=== PATIENT | male | born 1990 | race Caucasian/White ===

== ENCOUNTER 2016-06-22 14:11 | Inpatient (IN) | payer SELFPAY ==
--- NOTE | ~2016-06-22 | PA ---
Unit #: [id number] #: [id number] Patient: DREW BRONSON [id number] [place] [address] [id number] MR#: [id number] NAME: DREW BRONSON ROOM: P206 Age: 25 Sex: M Admission Date: 06/22/2016 : 1990 Date of Assessment: 06/23/2016 Attending Physician: Kwaku Mcclain M.D. Admitting Physician: Kwaku Mcclain M.D. Primary Care Physician: Generic Doctor Not In System PSYCHIATRIC ASSESSMENT DATE OF SERVICE 06/23/2016. INFORMANTS The patient, reliable; OLOP, reliable. CHIEF COMPLAINT Opioid dependence. HISTORY OF PRESENT ILLNESS Hoang is a 25-year-old man with a history of opioid dependence, who presented to the hospital in an extremely intoxicated state. Evaluation had to be conducted via Tajik sign language interpreter in which the patient admitted to ongoing heroin use and requested admission for detox. He denied suicidal ideation, intent, or plan. He was admitted for opioid detox. PAST PSYCHIATRIC HISTORY One previous admission to this facility. He has no other psychiatric history. FAMILY PYSCHIATRIC HISTORY None. SOCIAL HISTORY Please see previous assessments. PAST MEDICAL HISTORY No chronic medical problems. MEDICATIONS None currently. ALLERGIES No known medication allergies. SUBSTANCE ABUSE HISTORY As noted, the patient has been using IV heroin to excess. MENTAL STATUS EXAMINATION The patient presented as a mildly disheveled man, who appeared his stated age. His speech was heavily accented Tajik with [id number] Malian language skills. Musculoskeletal examination was calm. His mood Unit #: [id number] #: [id number] Patient: DREW BRONSON was moderately depressed with a congruent affect. He was alert and fully oriented with no evidence of psychosis and no statements of suicidal ideation. Insight and judgment were fair to good. ASSETS AND LIABILITIES The patient is in general good health and has supportive family. Liabilities include problems with acculturation and ongoing drug use. ADMITTING DIAGNOSES AXIS I: Opiate dependence with withdrawal, uncomplicated, F11.23. AXIS II: No diagnosis. AXIS III: Opioid withdrawal. AXIS IV: AXIS V: PSYCHIATRIC PLAN The patient was admitted and placed on the opioid detox protocol. Physical examination will be ordered and reviewed. TREATMENT GOALS Establishment of sobriety, improvement in insight, and improvement in coping skills. DISCHARGE PLANNING [facility]. ESTIMATED LENGTH OF STAY 5 days. Dictated by... Kwaku Mcclain M.D. CLAIRE/shaan TD: 09/01/2016 16:20 JOB #: [id number] PSYCHIATRIC ASSESSMENT Page 1 of 1 X Kwaku Mcclain MD X PSYCHIATRIC ASSESSMENT
--- NOTE | ~2016-06-22 | HP ---
Unit #: [id number] #: [id number] Patient: TANO BRONSON [id number] [place] [address] [id number] MR#: [id number] NAME: TANO BRONSON ROOM: P206 Age: 25 Sex: M Admission Date: 06/22/2016 : 1990 Attending Physician: Kwaku Mcclain M.D. Admitting Physician: Kwaku Mcclain M.D. Primary Care Physician: Jassi Doctor Not In System HISTORY AND PHYSICAL HISTORY OF PRESENT ILLNESS Tano is a 25 year old admitted to [address] [place] [address] because of his continued drug use which includes IV heroin. PAST MEDICAL HISTORY Long history of illicit substance abuse to include IV heroin, amphetamines and marijuana. PAST SURGICAL HISTORY Nothing reported. ALLERGIES No known drug allergies. SOCIAL HISTORY He does not smoke. Drinks alcohol on occasion. Admits to a long history of illicit substance abuse to include IV drugs. FAMILY HISTORY Medically noncontributory. REVIEW OF SYSTEMS CONSTITUTIONAL: No fever or chills. HEENT: Denies any sore throat, ear pain or runny nose. CARDIOVASCULAR: Denies chest pain, irregular heart rhythm or palpitations. CHEST: Denies shortness of breath or cough. No hemoptysis. GASTROINTESTINAL: Denies nausea, vomiting, diarrhea or chronic constipation. ENDOCRINE: Denies history of increased thirst or urination. No recent significant weight loss or gain. GENITOURINARY: Denies dysuria, frequency, or hematuria. SKIN: Denies any rashes. HEMATOLOGIC: Denies history of increased bleeding or bruising. MUSCULOSKELETAL: Denies any hot, swollen joints. No generalized muscle pain. NEUROLOGIC: Denies problems with vision or speech. No frequent, severe headaches. No numbness, tingling or weakness in any extremities. Denies loss of bladder or bowel control. CURRENT MEDICATIONS Detox protocol. PHYSICAL EXAMINATION Unit #: [id number] #: [id number] Patient: TANO BRONSON GENERAL: Alert, well-nourished, in no apparent distress. VITAL SIGNS: Blood pressure 124/92, heart rate 80, respirations 16, temperature 98.6. WEIGHT: 150. HEIGHT: 5 feet 8 inches. SKIN: Warm and dry without rash or lesion. HEENT: Normocephalic. TMs not viewed. Oral and nasal passages clear. Conjunctivae clear. PERRLA. EOMs intact. NECK: Supple without lymphadenopathy or thyromegaly. HEART: Regular rate and rhythm without murmur. LUNGS: Clear. ABDOMEN: Soft, nontender. : Not done. EXTREMITIES: No evidence of cyanosis, clubbing or edema. Moves all without focal deficit. NEUROLOGICAL: Grossly within normal limits. Cranial Nerves: II: Visual dowling are intact. III, IV AND : Extraocular movements are intact. Pupils are equal, round and reactive to light. V: Facial sensation is grossly normal. VII: Facial movements and expression are normal. VIII: Auditory acuity grossly intact. IX, X: Uvula is midline. Phonation is normal. XI: Patient shrugs shoulders and turns head normally. XII: Tongue protrudes in the midline. Sensory and Motor Function: Sensory and motor sensation is grossly normal. Motor: moves all extremities well. Coordination: Gait is normal. Deep Tendon Reflexes: Intact. IMPRESSION Psychiatric admission. RECOMMENDATIONS PSYCHIATRIC: Per psychiatrist. MEDICAL: See no contraindications to participate in facility's activities. MEDICAL PROGNOSIS Good. MEDICAL CONDITION Stable. Dictated by... Zuleika Christian P.A.-C. for Jamie España/candido TD: 06/22/2016 19:34 JOB #: [id number] Unit #: [id number] #: [id number] Patient: TANO BRONSON HISTORY AND PHYSICAL Page 1 of 1 X Zuleika Christian HISTORY AND PHYSICAL
--- NOTE | ~2016-06-22 | DS ---
Unit #: [id number] #: [id number] Patient: DREW BRONSON [id number] [place] [address] [id number] MR#: [id number] NAME: DREW BRONSON ROOM: P206 Age: 25 Sex: M Admission Date: 06/22/2016 : 1990 Discharge Date: 06/25/2016 Attending Physician: Kwaku Mcclain M.D. Primary Care Physician: Generic Doctor Not In System DISCHARGE SUMMARY REASON FOR ADMISSION Roel is a 25-year-old Indonesian man, who presented for the third time to this facility with complaints of increasing heroin abuse in the IV state. He has also abused cannabis and amphetamines. He was admitted for detox. LABORATORY DATA Please see hospital chart. HOSPITAL COURSE The patient was admitted and placed on the opioid detox protocol. Ukrainian language translation was provided for group participation and he denied suicidal ideation, intent, or plan. He had no depression symptoms and no suicidal ideation, and was able to contract for safety once again on the date of discharge. DISCHARGE DIAGNOSES AXIS I: Opioid dependence with withdrawal, uncomplicated. AXIS II: No diagnosis. AXIS III: Opioid withdrawal syndrome. AXIS IV: AXIS V: DISCHARGE INSTRUCTIONS Follow up with chemical dependence programming in the community through the community mental health program. DISCHARGE MEDICATIONS None. CONDITION AT DISCHARGE Fair. PROGNOSIS Good. DIET Per primary care doctor. ACTIVITY Per primary care doctor. Unit #: [id number] #: [id number] Patient: DREW BRONSON Dictated by... Jamie Chong/kishorl TD: 09/01/2016 16:21 JOB #: [id number] DISCHARGE SUMMARY Page 1 of 1 X Kwaku Mcclain MD X DISCHARGE SUMMARY
[2016-06-23 09:49] LABS: BASOPHIL# 0.1 X10e3 (0-0.3); BASOPHIL% 0.3 % (0-2.5); HEMATOCRIT 55.1 % (38.0-50.0); LYMPHOCYTE# 2.9 X10e3 (1.0-3.5); MEAN CELL VOLUME 82.1 FL (83-96); MEAN CORPUSCULAR HEMOGLOBIN 26.9 PG (28-34); MEAN CORPUSCULAR HGB CONC 32.7 g/dL (30-36); MEAN PLATELET VOLUME 8.1 FL (6.5-11.5); MONOCYTE# 1.3 X10e3 (0-1.0); MONOCYTE% 5.7 % (3.0-12.0); NEUTROPHIL# 18.1 X10e3 (1.5-7.1); PLATELET COUNT 570 X10e3 (140-420); RED BLOOD COUNT 6.71 X10e (3.90-5.60); RED CELL DISTRIBUTION WIDTH 13.8 % (11.0-15.5); WHITE BLOOD COUNT 22.3 X10e3 (4.0-10.5)
[2016-06-23 09:52] LABS: DIFF IND YES
[2016-06-23 09:57] LABS: ALBUMIN SERUM 5.3 g/dL (3.5-5.0); BILIRUBIN,TOTAL 1.1 mg/dL (0.2-2.0); BUN/CREATININE RATIO 11.29; CREATININE SERUM 3.1 mg/dL (0.6-1.4); GLOM FILT RATE Estimated 26.2 mL/min (>60); POTASSIUM 3.8 mmol/L (3.5-5.1); PROTEIN TOTAL SERUM 10.5 g/dL (6.0-8.3)
[2016-06-23 10:13] LABS: ANISOCYTOSIS SL; PLATELET ESTIMATE INCREASED (NORMAL)
== END 2016-06-25 16:20 | disposition home or self-care (01) | DRG 897 ==
LOC: P2S 14:11
PROVIDERS: Psychiatry & Neurology Psychiatry
PROC: HZ2ZZZZ Detoxification Services for Substance Abuse Treatment (ICD-10-PCS; principal; 2016-06-22)
DX: F11.23 Opioid dependence with withdrawal (principal)
CPT/HCPCS: 80053; 85025; 86592; J2550; J3411